=== PATIENT | female | born 1965 | race Caucasian/White ===

== ENCOUNTER 2016-09-22 16:02 | Emergency (ER) | payer OTHER ==
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
--- NOTE | 2016-09-22 18:07 | ED ORDER SUMMARY ---
..... Patient: YADIEL HARVEY OrderSheet [facility] VisitID: [id number] [address] [place] [address] 51y, F Registration Date/Time: 09/22/2016 ORDER SHEET Weight: 83.9 kg (stated) Allergies: Demerol GENERAL ORDERS: Nasal Bones Urgent (16:54 09/22/2016 Mabel Fink) (Ack 16:59 TBerglpaolo) (18:37 Marline R.N.) Ice (16:54 09/22/2016 Mabel Fink) (Ack 16:59 TBeprincessglpaolo) (17:01 Marline Brown.N.) MEDICATION ORDERS: IV FLUIDS: ORDER SHEET NOTES: [Electronically signed by Sekou Coe Dr. (18:09 09/22/2016)] [Electronically signed by Sherri Zuniga R.N. (18:37 09/22/2016)] [Electronically locked/signed by Sherri Zuniga R.N. (18:37 09/22/2016)]
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
--- NOTE | 2016-09-22 18:07 | ED ORDER SUMMARY ---
..... Patient: YADIEL HARVEY OrderSheet [facility] VisitID: [id number] [address] [place] [address] 51y, F Registration Date/Time: 09/22/2016 ORDER SHEET Weight: 83.9 kg (stated) Allergies: Demerol GENERAL ORDERS: Nasal Bones Urgent (16:54 09/22/2016 Mabel Fink) (Ack 16:59 TBerglpaolo) (18:37 Marline R.N.) Ice (16:54 09/22/2016 Mabel Fink) (Ack 16:59 TBeprincessglpaolo) (17:01 Marline Brown.N.) MEDICATION ORDERS: IV FLUIDS: ORDER SHEET NOTES: [Electronically signed by Sekou Coe Dr. (18:09 09/22/2016)] [Electronically signed by Sherri Zuniga R.N. (18:37 09/22/2016)] [Electronically locked/signed by Sherri Zuniga R.N. (18:37 09/22/2016)]
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
--- NOTE | 2016-09-22 18:37 | ED MAR SUMMARY ---
..... Medication Administration Record [facility] [address] [place], [place] [id number] Patient: YADIEL HARVEY Visit ID: [id number] 51y, F Weight: 83.9 kg Height/Length: 66 in BMI: 29.9 ALLERGIES: Demerol
--- NOTE | 2016-09-22 18:37 | ED MED RECONCILIATION SUMMARY ---
Patient: YADIEL HARVEY Medication Reconciliation Report [facility] VisitID: [id number] [address] [place] [address] 51y, F Registration Date/Time: 09/22/2016 Weight: 83.9 kg Height/Length: 66 in. BMI: 29.9 ALLERGIES: Demerol The patient's Home Medications are listed below: CONTINUE TAKING THE FOLLOWING MEDICATIONS: Gemfibrozil Oral Hydrochlorothiazide Oral Levothyroxine Sodium Oral MetFORMIN HCl Oral Pravastatin Sodium Oral The source(s) of the original Home Medication information: Not obtained. The following Medications were given to the patient in the Emergency Department: None. The following Medications were prescribed to the patient: Tramadol 50 mg: take 1 orally every 6 hours as needed for pain and stiffness. Do not take more than 8 tablets in a 24 hour period. Dispense fifteen (15). No refills. -- Sekou Coe Dr.
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
--- NOTE | 2016-09-22 18:37 | ED MAR SUMMARY ---
..... Medication Administration Record [facility] [address] [place], [place] [id number] Patient: YADIEL HARVEY Visit ID: [id number] 51y, F Weight: 83.9 kg Height/Length: 66 in BMI: 29.9 ALLERGIES: Demerol
--- NOTE | 2016-09-22 18:37 | ED MED RECONCILIATION SUMMARY ---
Patient: YADIEL HARVEY Medication Reconciliation Report [facility] VisitID: [id number] [address] [place] [address] 51y, F Registration Date/Time: 09/22/2016 Weight: 83.9 kg Height/Length: 66 in. BMI: 29.9 ALLERGIES: Demerol The patient's Home Medications are listed below: CONTINUE TAKING THE FOLLOWING MEDICATIONS: Gemfibrozil Oral Hydrochlorothiazide Oral Levothyroxine Sodium Oral MetFORMIN HCl Oral Pravastatin Sodium Oral The source(s) of the original Home Medication information: Not obtained. The following Medications were given to the patient in the Emergency Department: None. The following Medications were prescribed to the patient: Tramadol 50 mg: take 1 orally every 6 hours as needed for pain and stiffness. Do not take more than 8 tablets in a 24 hour period. Dispense fifteen (15). No refills. -- Sekou Coe Dr.
== END 2016-09-22 18:35 | disposition home or self-care (01) ==
LOC: ED SRH 16:02
DX: S00.33XA Contusion of nose, initial encounter (principal); Y04.0XXA Assault by unarmed brawl or fight, initial encounter; Y93.9 Activity, unspecified; Y92.218 Other school as the place of occurrence of the external cause; Y99.8 Other external cause status; I10 Essential (primary) hypertension; E11.69 Type 2 diabetes mellitus with other specified complication; Z79.84 Long term (current) use of oral hypoglycemic drugs; Z88.8 Allergy status to other drugs, medicaments and biological substances; Z79.899 Other long term (current) drug therapy